=== PATIENT | female | born 1970 | race Caucasian/White ===

== ENCOUNTER → 2016-10-01 | Outpatient (CLI) | payer BC ==
[~2016-10-01] MED LIST: BUPR200T2 PO; CLON1TAB3 PO; LAMO200T38 PO; OXYC1TAB3 PO; PALI3TAB PO; PRED20TA PO; ZOLP5TAB PO
== END | disposition home or self-care (01) ==
LOC: C.PAPS 07:52
PROVIDERS: ATTEND Physician Assistant
DX: Z01.419 Encounter for gynecological examination (general) (routine) without abnormal findings (principal)